=== PATIENT | male | born 1960 | race Caucasian/White ===

== ENCOUNTER 2016-12-11 | Emergency (ER) | payer OTHER ==
[~2016-12-11] MED LIST: ACETAMINOPHEN325 MG PO; AMBIEN5 MG PO; ATIVAN0.5 MG PO; B/P MED; BENADRYL25 MG PO; CELEBREX200 M1 PO; CYCLOBENZAPRINE10 MG PO; DULCOLAX10 MG/SUPP RC; DULCOLAX5 MG PO; ECOTRIN500 MG PO; FLEXERIL10 MG PO; GLUCOPHAGE500 M1 PO; GLUCOPHAGE500 M3 PO; LISINOPRIL10 MG PO; LISINOPRIL20 M1 PO; LOPRESSOR25 MG/TA2 PO; METFORMIN HCL500 MG PO; MILK OF MAGNESIA PO; NORCO 5/325 TAB1 TAB PO; OMEPRAZOLE40 MG PO; OXYCODONE/APAP PO; PERCOCET 7.5/321 TA2 PO; ROXICODONE5 M2 PO; SENOKOT-S (SENN1 TA1 PO; TUMS500 MG PO; ULTRAM50 M1 PO; ULTRAM50 MG PO; XARELTO10 M1 PO; XARELTO10 MG PO
[2016-12-11] MEDS ORDERED: NORVASC5 M2 PO (18:07)
[2016-12-11] MEDS ORDERED: CYCLOBENZAPRINE10 M1 PO (18:07)
[2016-12-11] MEDS ORDERED: IBUPROFEN800 M1 PO (18:16)
[2016-12-11] MEDS ORDERED: MELOXICAM15 M1 PO (18:17)
[2016-12-11] MEDS ORDERED: PAXIL40 M1 PO (18:17)
[2016-12-11] MEDS ORDERED: HYDROCODON-ACE1 EA16 PO (18:45)
[2016-12-11] MEDS ORDERED: DELTASONE20 MG PO (18:46)
== END 2016-12-11 21:28 ==
DX: M54.17 Radiculopathy, lumbosacral region (principal); E11.65 Type 2 diabetes mellitus with hyperglycemia; E66.01 Morbid (severe) obesity due to excess calories; F17.200 Nicotine dependence, unspecified, uncomplicated